=== PATIENT | female | born 1990 | race Two or more races ===

== ENCOUNTER 2017-09-01 12:15 | Observation (INO) | payer MEDICAID, OTHER | END 2017-09-01 13:55 | disposition home or self-care (01) | DRG 566 | LOC: LDRP 12:15 | PROVIDERS: ADMIT Specialist; ATTEND Specialist | DX: O26.893 Other specified pregnancy related conditions, third trimester (principal); M54.9 Dorsalgia, unspecified; R10.30 Lower abdominal pain, unspecified; Z3A.33 33 weeks gestation of pregnancy | CPT/HCPCS: 59025; 76815; 81002; G0378 ==